=== PATIENT | female | born 1935 | race African-American/Black ===

== ENCOUNTER 2017-10-03 20:42 | Inpatient (IN) | payer MEDICAID, MEDICARE ==
[~2017-10-03] VITALS: Ht 167.6 cm; Wt 86.2 kg
[~2017-10-03 20:42] MED LIST: GABA-531 PO; OXYC-30 PO; SIMV-261 PO
[2017-10-03 21:33] LABS: BASOPHILS % (AUTO) 0.8 % (0.0-2.0); EOSINOPHILS % (AUTO) 1.8 % (1.0-6.0); HEMATOCRIT 39.6 % (36-46); HEMOGLOBIN 13.7 g/dL (12.0-16.0); LYMPHOCYTES # (AUTO) 1.4 K/uL (1.0-4.8); LYMPHOCYTES % (AUTO) 14.2 % (22.0-44.0); MEAN CORPUSCULAR HEMOGLOBIN 30.6 pg (26.0-34.0); MEAN CORPUSCULAR HGB CONC 34.6 G/dL (31.0-37.0); MEAN CORPUSCULAR VOLUME 89 fL (80-100); MONOCYTES # (AUTO) 0.6 K/uL (0.1-1.0); MONOCYTES % (AUTO) 6.2 % (2.0-9.0); NEUTROPHILS # (AUTO) 7.5 K/uL (1.8-7.7); PLATELET COUNT (AUTO) 280 K/uL (150-450); RED BLOOD CELL COUNT(AUTO) 4.47 MIL/uL (4.00-5.20); RED CELL DISTRIBUTION WIDTH 16.6 % (11.5-14.5)
[2017-10-03 21:38] LABS: APPEARANCE,URINE CLEAR (CLEAR); BILIRUBIN,URINE NEGATIVE (NEGATIVE); GLUCOSE, URINE (UA) NEGATIVE (NEGATIVE); KETONES,URINE NEGATIVE (NEGATIVE); LEUKOCYTE ESTERASE ,URINE SMALL (NEGATIVE); NITRATE,URINE NEGATIVE (NEGATIVE); OCCULT BLOOD,URINE SMALL (NEGATIVE); PROTEIN,URINE POS 1+ (NEGATIVE)
[2017-10-03 21:45] LABS: ANION GAP 10 mmol/L (8-16); CALCIUM, TOTAL 9.4 mg/dL (8.8-10.5); CARBON DIOXIDE 26 mmol/L (22-29); CHLORIDE 105 mmol/L (98-107); GLOMERULAR FILTR. RATE CALC > 60 mL/min (>60); GLUCOSE,RANDOM 165 mg/dL (70-110); POTASSIUM 3.7 mmol/L (3.5-5.1); SODIUM SERUM 141 mmol/L (136-145); UREA NITROGEN, BLOOD 15 mg/dL (7-18)
[2017-10-03 21:47] LABS: PROTHROMBIN TIME 10.2 SEC (9.4-11.6)
[2017-10-03 21:48] LABS: SQUAMOUS EPITHELIAL CELL,UR Few /LPF (None Seen)
[2017-10-03 21:50] LABS: ALANINE AMINOTRANSFERASE 17 U/L (12-78); ALBUMIN 3.6 g/dL (3.4-5.0); ALKALINE PHOSPHATASE 114 U/L (46-116); ASPARTATE AMINOTRANSFERASE 17 U/L (15-37); BILIRUBIN,TOTAL 1.3 mg/dL (0.1-1.0); CREATINE KINASE, TOTAL 72 U/L (26-192); TOTAL PROTEIN, SERUM 7.7 g/dL (6.4-8.2)
[2017-10-03 21:53] LABS: BACTERIA,URINE Rare /HPF (None Seen)
[2017-10-03 21:54] LABS: B-TYPE NATRIURETIC PEPTIDE 144 pg/mL (0-100)
[2017-10-03] MEDS ORDERED: NITROGLYCERIN 2% (1 GM=INCH) PACKET TP ONE (22:00)
[2017-10-03] MEDS ORDERED: ASPIRIN 325 MG EC TABLET PO ONE (22:00)
[2017-10-03 22:16] LABS: FREE T4 (FREE THYROXINE) 0.92 ng/dL (0.76-1.46); THYROID STIMULATING HORMONE 2.23 uIU/mL (0.36-3.74)
[2017-10-03] MEDS ORDERED: HEPARIN SODIUM 25000 UNITS/D5W 250 ML IV PRN (22:45)
[2017-10-03] MEDS ORDERED: ACETAMINOPHEN 325 MG TABLET PO PRN (23:15)
[2017-10-03] MEDS ORDERED: 0.9% SODIUM CHLORIDE 10 ML SYRINGE IVP PRN (23:15)
[2017-10-03] MEDS ORDERED: HEPARIN SODIUM,PORCINE 5,000 UNITS/ML VIAL IVP ONE (23:30)
[2017-10-03 23:55] VITALS: BP 154/79
[2017-10-04 04:17] VITALS: BP 110/75
[2017-10-04] MEDS ORDERED: MAGNESIUM HYDROXIDE SUSPENSION 30 ML UDCUP PO PRN (05:00)
[2017-10-04] MEDS ORDERED: ACETAMINOPHEN 325 MG TABLET PO PRN (05:00)
[2017-10-04] MEDS ORDERED: MORPHINE SULFATE 4 MG/ML SYRINGE IVP PRN (05:00)
[2017-10-04] MEDS ORDERED: 0.9% SODIUM CHLORIDE 10 ML SYRINGE IVP PRN (05:00)
[2017-10-04] MEDS ORDERED: ONDANSETRON HCL 4 MG/2 ML VIAL IVP PRN (05:00)
[2017-10-04] MEDS ORDERED: HEPARIN SODIUM,PORCINE 5,000 UNITS/ML VIAL IVP PRN ×2 (05:15)
[2017-10-04] MEDS ORDERED: HEPARIN SODIUM 25000 UNITS/D5W 250 ML IV PRN (05:15)
[2017-10-04 06:49] LABS: BASOPHILS % (AUTO) 0.8 % (0.0-2.0); EOSINOPHILS % (AUTO) 2.1 % (1.0-6.0); HEMATOCRIT 37.4 % (36-46); LYMPHOCYTES # (AUTO) 1.9 K/uL (1.0-4.8); LYMPHOCYTES % (AUTO) 23.4 % (22.0-44.0); MEAN CORPUSCULAR HGB CONC 34.9 G/dL (31.0-37.0); MEAN CORPUSCULAR VOLUME 89 fL (80-100); MONOCYTES # (AUTO) 0.7 K/uL (0.1-1.0); MONOCYTES % (AUTO) 8.4 % (2.0-9.0); NEUTROPHILS # (AUTO) 5.2 K/uL (1.8-7.7); NEUTROPHILS % (AUTO) 65.3 % (40.0-70.0); PLATELET COUNT (AUTO) 263 K/uL (150-450); RED BLOOD CELL COUNT(AUTO) 4.21 MIL/uL (4.00-5.20); RED CELL DISTRIBUTION WIDTH 15.9 % (11.5-14.5)
[2017-10-04 07:23] VITALS: BP 118/77
[2017-10-04 07:28] LABS: ALANINE AMINOTRANSFERASE 15 U/L (12-78); ALBUMIN 3.2 g/dL (3.4-5.0); ALKALINE PHOSPHATASE 101 U/L (46-116); ANION GAP 7 mmol/L (8-16); ASPARTATE AMINOTRANSFERASE 22 U/L (15-37); BILIRUBIN,TOTAL 1.6 mg/dL (0.1-1.0); CALCIUM, TOTAL 9.3 mg/dL (8.8-10.5); CARBON DIOXIDE 27 mmol/L (22-29); CHLORIDE 106 mmol/L (98-107); CHOL/HDL RATIO 3.2 (3.9-5.7); CHOLESTEROL 165 mg/dL (131-200); CREATININE 0.84 mg/dL (0.60-1.30); GLOMERULAR FILTR. RATE CALC > 60 mL/min (>60); GLUCOSE,RANDOM 126 mg/dL (70-110); HDL CHOLESTEROL 52 mg/dL (40-60); LDL CHOL (CALC.) 99 mg/dL (0-130); PHOSPHORUS 3.2 mg/dL (2.5-4.9); POTASSIUM 3.6 mmol/L (3.5-5.1); SODIUM SERUM 140 mmol/L (136-145); TOTAL PROTEIN, SERUM 7.1 g/dL (6.4-8.2); TRIGLYCERIDES 72 mg/dL (15-150); UREA NITROGEN, BLOOD 12 mg/dL (7-18)
[2017-10-04] MEDS: METOPROLOL TARTRATE 25 MG TABLET PO SCH ×2 (09:14→20:22)
[2017-10-04] MEDS: SIMVASTATIN 40 MG TABLET PO SCH (09:16)
[2017-10-04] MEDS: GABAPENTIN 300 MG CAPSULE PO SCH ×2 (09:16→20:22)
[2017-10-04] MEDS: ASPIRIN 81 MG CHEWABLE TABLET PO SCH (09:17)
[2017-10-04] MEDS: PANTOPRAZOLE SODIUM 40 MG DR TABLET PO SCH (09:17)
[2017-10-04] MEDS: LISINOPRIL 5 MG TABLET PO SCH (09:58)
[2017-10-04 11:41] VITALS: BP 108/73
[2017-10-04 15:15] VITALS: BP 113/73
[2017-10-04 19:37] VITALS: BP 121/77
[2017-10-04 23:49] VITALS: BP 138/79
[2017-10-05 04:40] VITALS: BP 135/82
[2017-10-05] MEDS: PANTOPRAZOLE SODIUM 40 MG DR TABLET PO SCH (08:06)
[2017-10-05] MEDS: LISINOPRIL 5 MG TABLET PO SCH (08:06)
[2017-10-05] MEDS: GABAPENTIN 300 MG CAPSULE PO SCH (08:06)
[2017-10-05] MEDS: ASPIRIN 81 MG CHEWABLE TABLET PO SCH (08:06)
[2017-10-05] MEDS: METOPROLOL TARTRATE 25 MG TABLET PO SCH (08:07)
[2017-10-05] MEDS: SIMVASTATIN 40 MG TABLET PO SCH (08:08)
[2017-10-05 08:09] VITALS: BP 145/94
[2017-10-05 11:45] VITALS: BP 122/69
[2017-10-05] MEDS ORDERED: LISI-660 PO (15:32)
[2017-10-05] MEDS ORDERED: ASPI81 PO (15:32)
[2017-10-05] MEDS ORDERED: PANT40TA25 PO (15:33)
[2017-10-05] MEDS ORDERED: METO25 PO (15:33)
[2017-10-05] MEDS ORDERED: MOM30 PO (15:35)
[2017-10-05] MEDS ORDERED: ONDA4 PO (15:37)
[2017-10-05] MEDS ORDERED: MORP2CAR IV (15:37)
[2017-10-05] MEDS ORDERED: ACET-2247 PO (15:38)
[2017-10-05 16:16] VITALS: BP 121/57
== END 2017-10-05 18:45 | disposition short-term general hospital (02) | DRG 280 ==
LOC: EMS 20:43 → 5N 23:00
PROVIDERS: ADMIT Internal Medicine; ATTEND Internal Medicine
DX: I21.4 Non-ST elevation (NSTEMI) myocardial infarction (principal); I50.43 Acute on chronic combined systolic (congestive) and diastolic (congestive) heart failure; G62.9 Polyneuropathy, unspecified; E66.01 Morbid (severe) obesity due to excess calories; I11.0 Hypertensive heart disease with heart failure; E78.5 Hyperlipidemia, unspecified; M19.90 Unspecified osteoarthritis, unspecified site; Z91.19 Patient's noncompliance with other medical treatment and regimen; Z88.8 Allergy status to other drugs, medicaments and biological substances; Z88.5 Allergy status to narcotic agent; Z82.5 Family history of asthma and other chronic lower respiratory diseases; Z68.30 Body mass index [BMI] 30.0-30.9, adult
CPT/HCPCS: 83735; 84100; 84439; 84443; 87086; 93005; 93306; 96374; 99285; J1644; J2270

== ENCOUNTER 2018-05-24 06:24 | Inpatient (IN) | payer MEDICARE ==
[~2018-05-24] VITALS: Ht 167.6 cm; Wt 81.7 kg
[~2018-05-24 06:24] MED LIST changes: +ACET-2247 PO; +ASPI81 PO; +LISI-660 PO; +METO25 PO; +MOM30 PO; +MORP2CAR IVP; +ONDA4 PO; -OXYC-30 PO; +PANT40TA25 PO
[2018-05-24] MEDS ORDERED: RIVA10 PO (06:34)
[2018-05-24] MEDS ORDERED: CLOP75 PO (06:34)
[2018-05-24] MEDS ORDERED: NITROGLYCERIN 0.4 MG SUBLINGUAL TABLET #25 SL ONE (07:00)
[2018-05-24] MEDS ORDERED: ASPIRIN 81 MG CHEWABLE TABLET PO ONE (07:00)
[2018-05-24 07:08] LABS: BASOPHILS % (AUTO) 0.7 % (0.0-2.0); EOSINOPHILS % (AUTO) 1.9 % (1.0-6.0); HEMATOCRIT 25.2 % (36-46); LYMPHOCYTES # (AUTO) 1.4 K/uL (1.0-4.8); LYMPHOCYTES % (AUTO) 19.9 % (22.0-44.0); MEAN CORPUSCULAR HEMOGLOBIN 24.6 pg (26.0-34.0); MEAN CORPUSCULAR HGB CONC 31.6 G/dL (31.0-37.0); MEAN CORPUSCULAR VOLUME 78 fL (80-100); MONOCYTES # (AUTO) 0.5 K/uL (0.1-1.0); MONOCYTES % (AUTO) 7.6 % (2.0-9.0); NEUTROPHILS % (AUTO) 69.9 % (40.0-70.0); PLATELET COUNT (AUTO) 385 K/uL (150-450); RED BLOOD CELL COUNT(AUTO) 3.25 MIL/uL (4.00-5.20); RED CELL DISTRIBUTION WIDTH 17.7 % (11.5-14.5)
[2018-05-24 07:21] LABS: ANION GAP 6 mmol/L (8-16); CALCIUM, TOTAL 9.4 mg/dL (8.8-10.5); CARBON DIOXIDE 25 mmol/L (22-29); CHLORIDE 108 mmol/L (98-107); CREATININE 0.72 mg/dL (0.60-1.30); GLUCOSE,RANDOM 153 mg/dL (70-110); POTASSIUM 4.6 mmol/L (3.5-5.1); SODIUM SERUM 139 mmol/L (136-145); UREA NITROGEN, BLOOD 7 mg/dL (7-18)
[2018-05-24 07:22] LABS: GLOMERULAR FILTR. RATE CALC > 60 mL/min (>60)
[2018-05-24 07:27] LABS: ALANINE AMINOTRANSFERASE 19 U/L (12-78); ALBUMIN 3.1 g/dL (3.4-5.0); ALKALINE PHOSPHATASE 123 U/L (46-116); ASPARTATE AMINOTRANSFERASE 18 U/L (15-37); BILIRUBIN,TOTAL 0.8 mg/dL (0.1-1.0); TOTAL PROTEIN, SERUM 6.8 g/dL (6.4-8.2)
[2018-05-24 08:06] LABS: PROTHROMBIN TIME 10.7 SEC (9.4-11.6)
[2018-05-24] MEDS ORDERED: ONDANSETRON HCL 4 MG/2 ML VIAL IVP ONE (08:15)
[2018-05-24] MEDS ORDERED: NITROGLYCERIN 2% (1 GM=INCH) PACKET TP ONE (08:15)
[2018-05-24] MEDS ORDERED: MORPHINE SULFATE 4 MG/ML SYRINGE IVP ONE ×2 (08:15→09:30)
[2018-05-24] MEDS ORDERED: MAGNESIUM HYDROXIDE SUSPENSION 30 ML UDCUP PO PRN (10:45)
[2018-05-24 11:19] VITALS: BP 119/57
[2018-05-24 11:55] VITALS: BP 119/57
[2018-05-24 15:57] VITALS: BP 100/53
[2018-05-24] MEDS: ACETAMINOPHEN 325 MG TABLET PO PRN ×2 (18:51→23:48)
[2018-05-24 19:56] VITALS: BP 121/74
[2018-05-24] MEDS ORDERED: SIMVASTATIN 40 MG TABLET PO SCH (21:00)
[2018-05-24] MEDS ORDERED: RIVAROXABAN 10 MG TABLET PO SCH (21:00)
[2018-05-24] MEDS: METOPROLOL TARTRATE 25 MG TABLET PO SCH (21:11)
[2018-05-24] MEDS: DOCUSATE SODIUM 100 MG CAPSULE PO SCH (21:11)
[2018-05-25 00:35] VITALS: BP 137/67
[2018-05-25 05:01] VITALS: BP 143/66
[2018-05-25 06:38] LABS: BASOPHILS % (AUTO) 0.7 % (0.0-2.0); EOSINOPHILS % (AUTO) 2.7 % (1.0-6.0); HEMATOCRIT 25.6 % (36-46); LYMPHOCYTES # (AUTO) 1.5 K/uL (1.0-4.8); LYMPHOCYTES % (AUTO) 23.8 % (22.0-44.0); MEAN CORPUSCULAR HEMOGLOBIN 24.5 pg (26.0-34.0); MEAN CORPUSCULAR HGB CONC 31.4 G/dL (31.0-37.0); MEAN CORPUSCULAR VOLUME 78 fL (80-100); MONOCYTES # (AUTO) 0.4 K/uL (0.1-1.0); NEUTROPHILS # (AUTO) 4.1 K/uL (1.8-7.7); NEUTROPHILS % (AUTO) 65.8 % (40.0-70.0); PLATELET COUNT (AUTO) 387 K/uL (150-450); RED BLOOD CELL COUNT(AUTO) 3.27 MIL/uL (4.00-5.20); RED CELL DISTRIBUTION WIDTH 17.5 % (11.5-14.5)
[2018-05-25 06:48] LABS: ANION GAP 6 mmol/L (8-16); CALCIUM, TOTAL 9.3 mg/dL (8.8-10.5); CARBON DIOXIDE 28 mmol/L (22-29); CHLORIDE 108 mmol/L (98-107); CREATININE 0.79 mg/dL (0.60-1.30); GLUCOSE,RANDOM 169 mg/dL (70-110); POTASSIUM 4.9 mmol/L (3.5-5.1); SODIUM SERUM 142 mmol/L (136-145); UREA NITROGEN, BLOOD 12 mg/dL (7-18)
[2018-05-25 06:49] LABS: GLOMERULAR FILTR. RATE CALC > 60 mL/min (>60)
[2018-05-25 07:04] LABS: APPEARANCE,URINE CLEAR (CLEAR); BILIRUBIN,URINE NEGATIVE (NEGATIVE); GLUCOSE, URINE (UA) NEGATIVE (NEGATIVE); KETONES,URINE NEGATIVE (NEGATIVE); LEUKOCYTE ESTERASE ,URINE NEGATIVE (NEGATIVE); NITRATE,URINE NEGATIVE (NEGATIVE); PH,URINE 6.5 (5.0-8.0); PROTEIN,URINE NEGATIVE (NEGATIVE); UROBILINOGEN,URINE 0.2 mg/dL (<=1.0)
[2018-05-25 07:14] LABS: BACTERIA,URINE None Seen /HPF (None Seen); OCCULT BLOOD,URINE MODERATE (NEGATIVE); WBC,URINE 0-2 /HPF (0-5)
[2018-05-25] MEDS: DOCUSATE SODIUM 100 MG CAPSULE PO SCH (07:56)
[2018-05-25] MEDS: METOPROLOL TARTRATE 25 MG TABLET PO SCH (07:58)
[2018-05-25 08:03] VITALS: BP 131/52
[2018-05-25] MEDS ORDERED: PANTOPRAZOLE SODIUM 40 MG DR TABLET PO SCH (09:00)
[2018-05-25] MEDS ORDERED: LISINOPRIL 5 MG TABLET PO SCH (09:00)
[2018-05-25] MEDS ORDERED: CLOPIDOGREL BISULFATE 75 MG TABLET PO SCH (09:00)
[2018-05-25] MEDS ORDERED: RIVAROXABAN 10 MG TABLET PO SCH (09:00)
[2018-05-25 11:37] VITALS: BP 120/51
== END 2018-05-25 13:45 | disposition home or self-care (01) | DRG 313 ==
LOC: EMS 06:24 → 5N 10:42
PROVIDERS: ADMIT Internal Medicine; ATTEND Internal Medicine
DX: R07.89 Other chest pain (principal); D63.8 Anemia in other chronic diseases classified elsewhere; F03.90 Unspecified dementia, unspecified severity, without behavioral disturbance, psychotic disturbance, mood disturbance, and anxiety; G89.29 Other chronic pain; I10 Essential (primary) hypertension; I25.10 Atherosclerotic heart disease of native coronary artery without angina pectoris; I44.0 Atrioventricular block, first degree; I70.0 Atherosclerosis of aorta; Z95.5 Presence of coronary angioplasty implant and graft; I48.0 Paroxysmal atrial fibrillation; Z79.899 Other long term (current) drug therapy; Z79.82 Long term (current) use of aspirin
CPT/HCPCS: 90686; 93005; 93306; 96374; 96375; 99291; G0378; J2270; J2405

== ENCOUNTER 2020-01-31 17:31 | Emergency (ER) | payer MEDICARE ==
[~2020-01-31] VITALS: Ht 175.3 cm; Wt 100.0 kg
[~2020-01-31 17:31] MED LIST changes: -ACET-2247 PO; +ACET-2865 PO; -ASPI81 PO; +CLOP-31 PO; -GABA-531 PO; -MORP2CAR IVP; -ONDA4 PO; +PANT-31 PO; -PANT40TA25 PO; +RIVA10 PO
[2020-01-31 18:37] LABS: BASOPHILS % (AUTO) 0.6 % (0.0-2.0); EOSINOPHILS % (AUTO) 2.4 % (1.0-6.0); HEMATOCRIT 36.3 % (36-46); HEMOGLOBIN 12.4 g/dL (12.0-16.0); LYMPHOCYTES # (AUTO) 1.4 K/uL (1.0-4.8); LYMPHOCYTES % (AUTO) 18.7 % (22.0-44.0); MEAN CORPUSCULAR HEMOGLOBIN 31.2 pg (26.0-34.0); MEAN CORPUSCULAR HGB CONC 34.2 G/dL (31.0-37.0); MEAN CORPUSCULAR VOLUME 91 fL (80-100); MONOCYTES # (AUTO) 0.7 K/uL (0.1-1.0); MONOCYTES % (AUTO) 8.5 % (2.0-9.0); NEUTROPHILS # (AUTO) 5.4 K/uL (1.8-7.7); NEUTROPHILS % (AUTO) 69.8 % (40.0-70.0); PLATELET COUNT (AUTO) 297 K/uL (150-450); RED BLOOD CELL COUNT(AUTO) 3.99 MIL/uL (4.00-5.20); RED CELL DISTRIBUTION WIDTH 14.1 % (11.5-14.5)
[2020-01-31] MEDS ORDERED: ASPIRIN 81 MG CHEWABLE TABLET PO ONE (18:45)
[2020-01-31 18:49] LABS: CALCIUM, TOTAL 10.2 mg/dL (8.8-10.5); CREATININE 1.08 mg/dL (0.60-1.30); POTASSIUM 3.7 mmol/L (3.5-5.1)
[2020-01-31 18:54] LABS: ALBUMIN 3.3 g/dL (3.4-5.0); TOTAL PROTEIN, SERUM 6.4 g/dL (6.4-8.2)
[2020-01-31 18:57] LABS: INR 1.6 (0.9-1.1); PROTHROMBIN TIME 16.6 SEC (9.4-11.6)
[2020-01-31 19:39] LABS: COVID AG,FIA SOURCE NASOPHARYNGEAL
[2020-01-31 20:11] LABS: APPEARANCE,URINE TURBID (CLEAR); GLUCOSE, URINE (UA) NEGATIVE (NEGATIVE); KETONES,URINE TRACE mg/dL (NEGATIVE); LEUKOCYTE ESTERASE ,URINE MODERATE (NEGATIVE); NITRATE,URINE NEGATIVE (NEGATIVE); OCCULT BLOOD,URINE LARGE (NEGATIVE); PH,URINE 5.5 (5.0-8.0); PROTEIN,URINE SEE CONFIRM (NEGATIVE)
[2020-01-31 20:14] LABS: BILIRUBIN,URINE PRELIM. POSITIVE (NEGATIVE)
[2020-01-31 20:25] LABS: RBC,URINE Full Field /HPF (0-2); SULFOSALICYLIC ACID,URINE 2+ (Negative)
[2020-01-31 20:26] LABS: BACTERIA,URINE Moderate /HPF (None Seen); CALCIUM OXALATE CRYSTALS,UR Moderate /LPF (None Seen); SQUAMOUS EPITHELIAL CELL,UR Few /LPF (None Seen)
[2020-01-31 22:30] VITALS: BP 143/68
== END 2020-01-31 23:51 | disposition short-term general hospital (02) ==
LOC: EMS 17:31
DX: R07.9 Chest pain, unspecified (principal); I25.2 Old myocardial infarction; Z20.828 Contact with and (suspected) exposure to other viral communicable diseases
CPT/HCPCS: 87086; 87426; 93005; 36415-L1; 36415-TC; 71045-TC

== ENCOUNTER 2023-08-24 12:47 | Emergency (ER) | payer MEDICARE ==
[~2023-08-24] VITALS: Ht 172.7 cm; Wt 81.0 kg
[~2023-08-24 12:47] MED LIST changes: +ACET-2247 PO; -ACET-2865 PO; -CLOP-31 PO; +CLOP75TA60 PO; -LISI-660 PO; +LISI-892 PO; +MAGN-169 PO; -MOM30 PO; -RIVA10 PO; +RIVA10TA PO
[2023-08-24 12:50] VITALS: TEMP 98.1
[2023-08-24] MEDS ORDERED: CEPH-558 PO (16:57)
[2023-08-24] MEDS: PERTUSS(ACELL),DIPH,TET/PF 0.5 ML SYRINGE [ADULT] IM. ONE (17:23)
[2023-08-24] MEDS: BACITRACIN 28 GM OINTMENT TP ONE (17:23)
[2023-08-24 17:34] VITALS: BP 135/70; PULSE 77; RESP 16
== END 2023-08-24 17:36 | disposition home or self-care (01) ==
LOC: EMS 12:50
DX: T25.221A Burn of second degree of right foot, initial encounter (principal); I10 Essential (primary) hypertension; I25.2 Old myocardial infarction; Z88.5 Allergy status to narcotic agent
CPT/HCPCS: 90471; 90715; 99283